=== PATIENT | male | born 1960 | race African-American/Black ===

== ENCOUNTER 2017-05-10 20:50 | Emergency (ER) | payer BC, OTHER ==
[~2017-05-10] VITALS: Ht 175.3 cm; Wt 72.0 kg
[2017-05-10 22:27] VITALS: Ht 175.3 cm; Wt 72.0 kg
[2017-05-10] MEDS ORDERED: NAPR-260 PO (23:54)
[2017-05-11 00:09] VITALS: BP 128/90; PULSE 91; RESP 18; TEMP 98.5
--- NOTE | 2017-05-11 00:22 | ERD ---
ER Documentation Chief Complaint Date/Time DATE: 05/11/17 TIME: 00:20 Chief Complaint RIGHT FOOT 5TH TOE "CORN" PAIN HPI This patient is a 57-year-old male presenting to the emergency department with complaints of right foot pain in between the fourth and fifth toes where there is a callus that he describes as a "corn". This is a chronic problem with 2 years, however the patient states that is worsened over the past week. Exacerbated by walking. Alleviated by rest and elevation. Symptoms are currently mild in severity. He denies fevers, chills, or other symptoms. ROS All systems reviewed and are negative except as per history of present illness. Medications Home Meds Active Scripts Naproxen* (Naprosyn*) 500 Mg Tablet, 500 MG PO BID Y for PAIN AND/OR INFLAMMATION, #30 TAB Prov:RADHIKA HARO PA-C 05/10/17 Allergies Allergies: Coded Allergies: No Known Allergy (Unverified , 05/10/17) PMhx/Soc Medical and Surgical Hx: pt denies Medical Hx, pt denies Surgical Hx Hx Alcohol Use: No Hx Substance Use: No Hx Tobacco Use: No Smoking Status: Never smoker Physical Exam Vitals Vital Signs Date Time Temp Pulse Resp B/P Pulse Ox O2 Delivery O2 Flow Rate FiO2 05/11/17 00:09 98.5 91 18 128/90 100 Room Air 05/10/17 22:27 98.6 113 18 133/98 99 Physical Exam Const: Nontoxic, well-appearing male in no acute distress. Head: Atraumatic Eyes: Normal Conjunctiva ENT: Normal External Ears, Nose and Mouth. Neck: Full range of motion..~ No meningismus. Ext: There is an area of callus in between the fourth and fifth toes of the left foot but there is no surrounding edema or erythema or lymphatic streaking or other signs of cellulitis. Neur: Awake and alert Psych: Normal Mood and Affect Procedures/MDM 57-year-old male presents to the emergency department with complaints of callus in between his fourth and fifth toes. On exam there is a callus here which may be a corn or may be secondary to increased friction. The patient does not require further workup in the department. I have low suspicion for cellulitis, sepsis, or other emergent conditions. He was given a prescription for naproxen. He is to follow-up with his primary care physician and a compress engineer. Strict ER return precautions were discussed. Departure Diagnosis: Primary Impression: Foot callus Condition: Fair Patient Instructions: Treating Corns and Calluses Referrals: [facility] YOU HAVE RECEIVED A MEDICAL SCREENING EXAM AND THE RESULTS INDICATE THAT YOU DO NOT HAVE A CONDITION THAT REQUIRES URGENT TREATMENT IN THE EMERGENCY DEPARTMENT. FURTHER EVALUATION AND TREATMENT OF YOUR CONDITION CAN WAIT UNTIL YOU ARE SEEN IN YOUR DOCTORS OFFICE WITHIN THE NEXT 1-2 DAYS. IT IS YOUR RESPONSIBILITY TO MAKE AN APPOINTMENT FOR FOLOW-UP CARE. IF YOU HAVE A PRIMARY DOCTOR --you should call your primary doctor and schedule an appointment IF YOU DO NOT HAVE A PRIMARY DOCTOR YOU CAN CALL OUR PHYSICIAN REFERRAL HOTLINE AT IF YOU CAN NOT AFFORD TO SEE A PHYSICIAN YOU CAN CHOSE FROM THE FOLLOWING [facility] [address] [facility]. [facility] [address] [facility] [facility] [address] [facility] [address] [facility] [address] [facility]. [facility] [address] Additional Instructions: Follow up with your PCP within the next 1-3 days for a repeat evaluation. If you require a referral to a specialist, your Primary Care Provider may be able to provide this for you. In most patient cases, a referral is not required. If you have further questions regarding this matter, please ask your Primary Care Provider. Return the the emergency department immediately if symptoms worsen or change. If you have any questions regarding medications, ask your pharmacist or us before you leave. If any adverse reactions, occur while taking your medications, discontinue the treatment and return to the emergency department immediately. If any new or worsening symptoms, uncontrolled fevers, or other unexplained symptoms occur, return to the emergency department immediately. Take your medications as directed, and complete the entire course of treatment. RADHIKA HARO PA-C May 11, 2017 00:22
== END 2017-05-10 23:56 | disposition home or self-care (01) ==
LOC: FTE 20:50
DX: L84 Corns and callosities (principal)
CPT/HCPCS: 99283

== ENCOUNTER 2017-06-30 05:40 | Emergency (ER) | payer BC ==
[~2017-06-30] VITALS: Ht 170.2 cm; Wt 73.0 kg
[~2017-06-30 05:40] MED LIST: NAPR-260 PO
[2017-06-30 05:44] VITALS: Ht 170.2 cm; Wt 73.0 kg
[2017-06-30] MEDS ORDERED: CEPHALEXIN 500 MG CAP PO STA (06:39)
[2017-06-30] MEDS ORDERED: TRIMETHOPRIM/SULFAMETHOX (DS) TAB PO STA (06:39)
[2017-06-30] MEDS ORDERED: LIDOCAINE 1% (MDV) 20 ML INJ SC ONE (07:00)
[2017-06-30] MEDS ORDERED: SULF1TAB31 PO (08:01)
[2017-06-30] MEDS ORDERED: CEPH-443 PO (08:01)
[2017-06-30 08:33] VITALS: BP 125/81; PULSE 84; RESP 18
--- NOTE | 2017-06-30 09:39 | ERD ---
ER Documentation Chief Complaint Date/Time DATE: 06/30/17 TIME: 09:34 Chief Complaint c/o right middle finger pain and swelling x 2 days. Hx of paronychia. HPI 57-year-old male presents to the emergency department complaining of moderate achy distal right middle finger pain and swelling for the past 2 days. Denies any fevers, trauma. Denies taking any medications for this ROS All systems reviewed and are negative except as per history of present illness. Medications Home Meds Active Scripts Sulfamethoxazole/Trimethoprim* (Bactrim Ds* Tablet) 1 Each Tablet, 1 TAB PO BID , #20 TAB Prov:BOBBI WALTER PA-C 06/30/17 Cephalexin* (Keflex*) 500 Mg Capsule, 500 MG PO QID for 10 Days, CAP Prov:BOBBI WALTER PA-C 06/30/17 Naproxen* (Naprosyn*) 500 Mg Tablet, 500 MG PO BID Y for PAIN AND/OR INFLAMMATION, #30 TAB Prov:RADHIKA HARO PA-C 05/10/17 Allergies Allergies: Coded Allergies: No Known Allergy (Unverified , 06/30/17) PMhx/Soc Medical and Surgical Hx: pt denies Medical Hx, pt denies Surgical Hx Hx Alcohol Use: No Hx Substance Use: No Hx Tobacco Use: No Smoking Status: Former smoker Physical Exam Vitals Vital Signs Date Time Temp Pulse Resp B/P Pulse Ox O2 Delivery O2 Flow Rate FiO2 06/30/17 08:33 84 18 125/81 99 Room Air 06/30/17 05:44 98.5 91 18 134/89 99 Physical Exam Const: WDWN Head: Atraumatic Eyes: Normal Conjunctiva ENT: Normal External Ears, Nose and Mouth. Neck: Full range of motion..~ No meningismus. Resp: Clear to auscultation bilaterally Cardio: Regular rate and rhythm, no murmurs Abd: Soft, non tender, non distended. Normal bowel sounds Skin: cuticle swelling with purulent pocket, distal finger swelling, full range of motion of PIP, DIP Back: No midline or flank tenderness Ext: No cyanosis, or edema Neur: Awake and alert Psych: Normal Mood and Affect Results 24 hrs Current Medications Medications (Trade) Dose Ordered Sig/Preet Route PRN Reason Start Time Stop Time Status Last Admin Dose Admin Lidocaine (Xylocaine 1% (Mdv) 20 ml) 20 ml ONCE ONCE SC 06/30/17 07:00 06/30/17 07:01 DC Cephalexin (Keflex) 500 mg ONCE STAT PO 06/30/17 06:39 06/30/17 06:40 DC 06/30/17 06:48 Trimethoprim/ Sulfamethoxazole (Bactrim (Ds)) 1 tab ONCE STAT PO 06/30/17 06:39 06/30/17 06:40 DC 06/30/17 06:48 Procedures/MDM Is a 57-year-old male presenting to the emergency department with right middle finger paronychia status, there was no evidence of flexor synovitis, lymphangitis, fracture. Incision and drainage procedure was done, listed below. Patient was given Keflex and Bactrim in the ED and he is appropriate to be discharged home to follow-up with PCP. Abscess Incision and Drainage with irrigation by me: Location: anterior distal right middle finger below nailed Anesthesia: [digital 1% Lidocaine] Technique: Irrigated. Disrupted loculations w/ instrumentation Packing: packing Complications: Neurovascularly intact post procedure 48 hour wound check. Scar minimization instructions given. Departure Diagnosis: Primary Impression: Paronychia Condition: Stable Patient Instructions: Abscess, Incision And Drainage, Paronychia Additional Instructions: Follow up in 2 days in your clinic for wound check. Take all medicines as directed. Return to this facility if you are not improving as expected. FOLLOW UP WITH YOUR PRIMARY CARE PHYSICIAN TOMORROW.Return to this facility if you are not improving as expected. BOBBI WALTER PA-C Jun 30, 2017 09:39
== END 2017-06-30 08:35 | disposition home or self-care (01) ==
LOC: FTE 05:40
DX: L03.011 Cellulitis of right finger (principal); Z87.891 Personal history of nicotine dependence
CPT/HCPCS: 10061; Z7502; Z7610